=== PATIENT | male | born 1995 | race Caucasian/White ===

== ENCOUNTER 2020-09-19 11:35 | Outpatient (REF) | payer OTHER, SELFPAY ==
[2020-09-19 12:54] LABS: Hematocrit 49.9 % (42-52); Hemoglobin 17.2 g/dl (14.0-18.0); Mean Corpuscular HGB Conc 34.5 g/dl (31.0-36.0); Mean Corpuscular Hemoglobin 29.2 pg (27.0-33.0); Mean Corpuscular Volume 84.7 fL (80-98); Mean Platelet Volume 10.1 fL (9.4-12.4); Platelet Count 254 X10*3/uL (160-400); Red Blood Count 5.89 X10*6/uL (4.60-5.80); Red Cell Distribution Width 12.6 % (11.0-16.0); White Blood Count 6.4 X10*3/uL (4.8-10.8)
[2020-09-19 13:06] LABS: Estimated Average Glucose 94 mg/dL; Hemoglobin A1c % 4.9 %
[2020-09-19 13:19] LABS: Alanine Aminotransferase 31 U/L (0-40); Albumin Level 4.8 g/dL (3.5-5.0); Alkaline Phosphatase 63 U/L (39-117); Anion Gap 12 (12-20); Aspartate Amino Transferase 21 U/L (5-37); Bilirubin Total 0.6 mg/dL (0.0-1.0); Blood Urea Nitrogen 21 mg/dL (9-16); Calcium 9.3 mg/dL (8.4-10.2); Carbon Dioxide 25 mmol/L (22-29); Chloride 107 mmol/L (96-108); Cholesterol 213 mg/dL; Estimated Glomerular Filt Rate > 60; Glucose Fasting 83 mg/dL (60-99); HDL Cholesterol 39 mg/dL; LDL Cholesterol Calculated 156 mg/dl; Potassium 4.2 mmol/L (3.3-5.1); Sodium 140 mmol/L (135-145); Total Protein 8.1 g/dL (6.5-8.0); Triglycerides 91 mg/dL
[2020-09-19 13:49] LABS: TSH reflex Free T4 1.19 uIU/mL (0.32-4.0)
== END 2020-09-19 11:36 | disposition home or self-care (01) ==
LOC: HO.LAB 11:35
PROVIDERS: PCP Physician Assistant; Visit Provider Physician Assistant
DX: I10 Essential (primary) hypertension (principal); E78.9 Disorder of lipoprotein metabolism, unspecified; E66.09 Other obesity due to excess calories; Z68.36 Body mass index [BMI] 36.0-36.9, adult; Z13.1 Encounter for screening for diabetes mellitus
CPT/HCPCS: 36415; 80053; 80061; 83036; 84443; 85027

== ENCOUNTER 2021-06-26 08:19 | Outpatient (REF) | payer OTHER, SELFPAY ==
[2021-06-26 08:58] LABS: Cholesterol 164 mg/dL; HDL Cholesterol 30 mg/dL; LDL Cholesterol Calculated 115 mg/dl; Triglycerides 97 mg/dL
== END 2021-06-26 08:20 | disposition home or self-care (01) ==
LOC: HO.LAB 08:19
PROVIDERS: PCP Physician Assistant; Visit Provider Physician Assistant
DX: E78.9 Disorder of lipoprotein metabolism, unspecified (principal)
CPT/HCPCS: 36415; 80061

== ENCOUNTER → 2021-08-08 09:05 | Outpatient (BNVA) | payer OTHER, SELFPAY | PROVIDERS: PCP Physician Assistant; Visit Provider Urology ==

== ENCOUNTER 2021-10-04 08:54 | Outpatient (REF) | payer OTHER, SELFPAY ==
[2021-10-04 10:08] LABS: Alanine Aminotransferase 34 U/L (0-40); Albumin Level 4.4 g/dL (3.5-5.0); Alkaline Phosphatase 48 U/L (39-117); Anion Gap 10 (12-20); Aspartate Amino Transferase 19 U/L (5-37); Bilirubin Total 0.7 mg/dL (0.0-1.0); Blood Urea Nitrogen 20 mg/dL (9-16); Calcium 9.5 mg/dL (8.4-10.2); Carbon Dioxide 27 mmol/L (22-29); Chloride 105 mmol/L (96-108); Cholesterol 195 mg/dL; Estimated Glomerular Filt Rate > 60; Glucose Fasting 78 mg/dL (60-99); HDL Cholesterol 36 mg/dL; LDL Cholesterol Calculated 136 mg/dl; Potassium 4.2 mmol/L (3.3-5.1); Sodium 138 mmol/L (135-145); Total Protein 7.4 g/dL (6.5-8.0); Triglycerides 118 mg/dL
[2021-10-04 10:09] LABS: Estimated Average Glucose 91 mg/dL; Hemoglobin A1c % 4.8 %
[2021-10-04 10:30] LABS: TSH reflex Free T4 1.35 uIU/mL (0.32-4.0)
== END 2021-10-04 08:55 | disposition home or self-care (01) ==
LOC: HO.LAB 08:54
PROVIDERS: PCP Physician Assistant; Visit Provider Physician Assistant
DX: Z13.1 Encounter for screening for diabetes mellitus (principal); E78.9 Disorder of lipoprotein metabolism, unspecified
CPT/HCPCS: 36415; 80053; 80061; 83036; 84443

== ENCOUNTER → 2021-12-18 10:48 | Outpatient (BNVA) | payer OTHER, SELFPAY | PROVIDERS: PCP Physician Assistant; Visit Provider Urology | DX: Z30.2 Encounter for sterilization (principal); F41.8 Other specified anxiety disorders | CPT/HCPCS: 55250 ==

== ENCOUNTER 2022-06-03 14:41 | Outpatient (REF) | payer OTHER, SELFPAY ==
[2022-06-04 08:29] LABS: Syphilis Screen Nonreactive (Nonreactive)
[2022-06-04 09:04] LABS: HBS Num1 0.79 mIU/mL (0-7.99); HBc Num1 0.12 S/CO (0.00-0.79); HBsAGNum1 0.37 S/CO (0.00-0.99); HIV AB/AG Nonreactive (Nonreactive); HIV Num 1 0.09 S/CO (0.00-0.99); Hepatitis B Core Antibody Nonreactive (Nonreactive); Hepatitis B Surface Antigen Negative (Negative); ~HepC Num1 0.12 S/CO (0.00-0.79); ~Hepatitis B Surface Antibody NONREACTIVE (Nonreactive); ~Hepatitis C Antibody Nonreactive (Nonreactive)
[2022-06-04 10:31] LABS: CT PCR NOT DETECTED (Not Detect.); NG PCR NOT DETECTED (Not Detect.)
== END 2022-06-03 14:42 | disposition home or self-care (01) ==
LOC: HO.LAB 14:41
PROVIDERS: PCP Physician Assistant; Visit Provider Physician Assistant
DX: Z11.3 Encounter for screening for infections with a predominantly sexual mode of transmission (principal); Z11.4 Encounter for screening for human immunodeficiency virus [HIV]; Z20.2 Contact with and (suspected) exposure to infections with a predominantly sexual mode of transmission
CPT/HCPCS: 86704; 86706; 86780; 86803; 87340; 87389; 87491; 87591

== ENCOUNTER 2022-10-03 14:40 | Outpatient (REF) | payer OTHER, SELFPAY ==
[2022-10-03 15:29] LABS: Hematocrit 48.2 % (42.0-52.0); Hemoglobin 16.8 g/dl (14.0-18.0); Mean Corpuscular HGB Conc 34.9 g/dl (31.0-36.0); Mean Corpuscular Hemoglobin 29.7 pg (27.0-33.0); Mean Corpuscular Volume 85.2 fL (80.0-98.0); Mean Platelet Volume 9.7 fL (9.4-12.4); Platelet Count 220 X10*3/uL (160-400); Red Blood Count 5.66 X10*6/uL (4.60-5.80); Red Cell Distribution Width 12.4 % (11.0-16.0); White Blood Count 7.6 X10*3/uL (4.8-10.8)
[2022-10-03 15:59] LABS: Alanine Aminotransferase 30 U/L (0-40); Albumin Level 4.6 g/dL (3.5-5.0); Alkaline Phosphatase 56 U/L (39-117); Anion Gap 11 (12-20); Aspartate Amino Transferase 21 U/L (5-37); Bilirubin Total 0.9 mg/dL (0.0-1.0); Blood Urea Nitrogen 14 mg/dL (9-16); Carbon Dioxide 31 mmol/L (22-29); Chloride 102 mmol/L (96-108); Cholesterol 214 mg/dL; Estimated Glomerular Filt Rate > 60; Glucose Fasting 72 mg/dL (60-99); HDL Cholesterol 47 mg/dL; LDL Cholesterol Calculated 152 mg/dl; Potassium 4.2 mmol/L (3.3-5.1); Sodium 140 mmol/L (135-145); Total Protein 7.6 g/dL (6.5-8.0); Triglycerides 75 mg/dL
== END 2022-10-03 14:41 | disposition home or self-care (01) ==
LOC: HO.LAB 14:40
PROVIDERS: PCP Physician Assistant; Visit Provider Physician Assistant
DX: Z13.1 Encounter for screening for diabetes mellitus (principal); E78.9 Disorder of lipoprotein metabolism, unspecified
CPT/HCPCS: 36415; 80053; 80061; 85027

== ENCOUNTER 2022-10-16 15:26 | Outpatient (REF) | payer OTHER, SELFPAY ==
[2022-10-16 18:36] LABS: TSH reflex Free T4 1.21 uIU/mL (0.32-4.0)
[2022-10-20 13:24] LABS: Thyroid Peroxidase Antibodies 1 IU/mL (<9)
== END 2022-10-16 15:27 | disposition home or self-care (01) ==
LOC: HO.LAB 15:26
PROVIDERS: PCP Physician Assistant; Visit Provider Physician Assistant
DX: E66.09 Other obesity due to excess calories (principal); Z68.32 Body mass index [BMI] 32.0-32.9, adult
CPT/HCPCS: 36415; 84443; 86376

== ENCOUNTER 2022-10-25 23:52 | Emergency (ER) | payer OTHER, SELFPAY ==
--- NOTE | ~2022-10-25 | XR_ITS ---
EXAMINATION: XR CHEST CLINICAL INFORMATION: Dyspnea COMPARISON: None available. TECHNIQUE: 2 views of the chest were obtained. FINDINGS: The lungs are clear with no focal consolidation. No evidence of pneumothorax, pulmonary edema, or pleural effusions. The cardiomediastinal silhouette is unremarkable. No acute osseous findings. XR/XR chest 2V IMPRESSION: No acute cardiopulmonary findings.
[2022-10-25 23:55] VITALS: BP 128/73; PULSE 127; RESP 24; TEMP 37.7; O2SAT 94; BMI 29.5
[2022-10-26 00:30] VITALS: BP 141/77; PULSE 118; RESP 18; O2SAT 94
[2022-10-26] MEDS: Albuterol Sulfate (0.083%) 2.5 MG/3 ML VIAL.NEB 5 MG INHALE (00:41)
[2022-10-26 00:42] VITALS: PULSE 78; RESP 16; O2SAT 97
[2022-10-26 00:58] VITALS: BP 118/66; PULSE 140; RESP 24; TEMP 38.4; O2SAT 98
--- NOTE | 2022-10-26 01:03 | ED_ITS ---
HPI - SOB/Dyspnea General Chief Complaint: Dyspnea Stated Complaint: SoB Time Seen by Provider: 10/26/22 00:27 Source: patient Mode of arrival: ambulatory Limitations: no limitations History of Present Illness HPI Narrative: 26-year-old male with history of asthma presents with shortness of breath. Symptoms started 1 week ago. Associated with low-grade temperature. He also has a cough of green mucus production. He occasionally has a chest tightness with associated with his cough. He denies any lower extremity edema, recent travel or surgeries. Denies any history of PE or DVT. Home remedies have not worked. Patient describes symptoms as moderate to severe. Symptoms are worse with exertion. Denies any orthopnea, PND. Patient has tried allergy medications without relief. Related Data Previous Rx's Medication Instructions Recorded albuterol sulfate 90 mcg/actuation 1 inh inhalation QID PRN shortness 09/05/22 aerosol inhaler of breath or wheezing #8.5 grams fexofenadine-pseudoephedrine ER 1 tab PO QAM 20 days #20 tabs 10/23/22 180 mg-240 mg tablet,ext.release 24 hr (Pearl-D 24 Hour) azithromycin 250 mg tablet 250 mg PO DAILY 4 days #4 tabs 10/26/22 fluticasone 250 mcg-salmeterol 50 1 inh inhalation Q12H #60 ea 10/26/22 mcg/dose blistr powdr for inhalation (Advair Diskus) Allergies Allergy/AdvReac Type Severity Reaction Status Date / Time No Known Allergies Allergy Verified 09/30/22 13:31 COUNTS INCLUDE 234 BEDS AT THE [facility] Past Medical History Surgical History No pertinent past surgical history Family History Family History Father No problems noted. Mother No problems noted. Social History Social History (Updated 09/30/22 @ 13:35 by Hilario Lopez PA-C) Housing: House Alcohol intake: current Alcohol intake frequency: holidays/special occasions only Alcohol type: hard liquor Patient Tobacco Use Status: Never used Tobacco Smoked in Last 30 Days: No e-Cigarette/Vaping Use: Never Used Second Hand Smoke Exposure: No Use of substances other than those prescribed or required for medical reasons: No Substance Use Type: Marijuana Advance Directives: No Advance Directives Information Provided: Yes service: No Current occupational status: employed Current occupation: [employer] Current occupational exposures/hazards: No Cognitive needs: No Hearing needs: No Vision needs: No Physical Exam Vital Signs: Vital Signs: Last Vital Signs Temp 101.1 F H 10/26/22 00:58 Pulse 94 10/26/22 01:17 Resp 19 10/26/22 01:17 BP 118/66 10/26/22 00:58 Pulse Ox 98 10/26/22 00:58 O2 Del Method Room Air 10/26/22 00:58 BMI result Body Mass Index 29.5 GEN: Well developed, no acute distress, alert, oriented HEENT: Normocephalic, atraumatic, normal external ears, nose appears normal, no oropharyngeal edema or exudates Eyes: Normal to appearance Neck: Supple, no lymphadenopathy Respiratory: Prolonged expiration, expiratory wheezes, slight accessory muscle use Cardiovascular: Regular rate and rhythm, no murmurs rubs or gallops, tachycardic Abdomen: Soft, nontender, nondistended, no guarding, no rebound Back: No CVA tenderness Extremities: No clubbing cyanosis or edema Neurologic: No focal neurologic deficits, cranial nerves 2-12 intact, strength is 5/5 bilaterally Skin: No rash Course Course Course Narrative: 26-year-old male presents with 1 week of cough, shortness of breath, wheezing, green mucus production and low-grade temperature on exam he has prolonged expiration and expiratory wheezes. This is consistent with an asthma exacerbation. Given the low-grade temperature, green mucus production in week of symptoms, suspect bacterial bronchitis at this time. Will check for COVID and influenza. Will obtain a chest x-ray. Patient will get oral steroids, nebulizer treatment and re-evaluation Reevaluation(s) Reevaluation #1: Patient is feeling much better. Pulmonary auscultation revealed no active wheezing. He is tachycardic from the albuterol. Will discharge on oral antibiotics, add beer. He has albuterol at home. He received a large dose of dexamethasone. There does not appear to be reason to continue dexamethasone at this time. Time: 02:04 Medications Administered Discontinued Medications Generic Name Dose Route Start Last Admin Trade Name Freq PRN Reason Stop Dose Admin Acetaminophen 975 mg 10/26/22 01:10 10/26/22 01:24 Acetaminophen 325 Mg Tablet PO 10/26/22 01:11 Not Given ONCE ONE Albuterol Sulfate 5 mg 10/26/22 00:25 10/26/22 00:41 Albuterol Sulfate (0.083%) 2.5 Mg/3 Ml Vial.Neb INHALE 10/26/22 00:26 5 mg ONCE ONE Administration Albuterol Sulfate 2.5 mg 10/26/22 01:10 10/26/22 01:14 Albuterol Sulfate (0.083%) 2.5 Mg/3 Ml Vial.Neb INHALE 10/26/22 01:11 2.5 mg ONCE ONE Administration Azithromycin 500 mg 10/26/22 00:48 10/26/22 01:21 Azithromycin 500 Mg Tablet PO 10/26/22 00:49 500 mg ONCE ONE Administration Dexamethasone 10 mg 10/26/22 00:48 10/26/22 01:21 Dexamethasone 2 Mg Tablet PO 10/26/22 00:49 10 mg ONCE ONE Administration Medical Decision Making Medical Decision Making MDM Narrative: 26-year-old male with history of asthma presents with shortness of breath, chest pain. Examination revealed well-appearing male in no acute distress, slight accessory muscle use for breathing. Has prolonged expiration and expiratory wheezes. He has no lower extremity edema. He has no risk factors for PE or DVT. His PERC score is 0. I suspect bronchitis or viral illness. Will obtain a chest x-ray to rule out pneumonia. Will provide patient with steroids and breathing treatments and re-evaluate the patient. There is no indication for laboratory analysis at this time. Will check for viral serology. Differential Diagnosis Differential Diagnoses: The differential diagnosis associated with the presentation includes (Pneumonia, bronchitis, asthma exacerbation, CHF, pleural effusion, dyspnea) Acute dyspnea Admission/Observation Consideration of admission/observation: Escalation of care including admission/observation considered Lab Data [facility] Lab Attestation statement: I reviewed the patient's lab results. Labs: Lab Results 10/26/22 10/26/22 Range/Units 01:13 01:13 COVID-19 (MISSY) Negative (Negative) COVID-19 Clin Com See Note Influenza Type A (TEETEE) Negative (Negative) Influenza Type B (TEETEE) Negative (Negative) Influenza A & B Note See Note Independent Interpretation I performed an independent interpretation of an: Plain X-Ray (CXR: NAD) Independent Historian Clinical information obtained from an independent historian. History obtained from or confirmed by: Other (Significant other) Tests considered The following testing was considered but not selected: CT chest Prescription Management I considered prescription management with: Pain Medication and Antibiotic Discharge Plan Discharge Clinical Impression: Acute dyspnea, Asthma with exacerbation Patient Disposition: Home, Self-Care Instructions: Asthma (ED), How to Use a Metered-Dose Inhaler (ED), How to Use a Dry-Powder Inhaler (ED), Dyspnea (ED), How to Use a Breath-Activated Inhaler (ED) Prescriptions: New azithromycin 250 mg tablet 250 mg PO DAILY 4 Days Qty: 4 0RF Rx Instructions: start on day 2 of therapy fluticasone propion-salmeterol [Advair Diskus] 250-50 mcg/dose blister with device 1 inh inhalation Q12H Qty: 60 0RF No Action albuterol sulfate 90 mcg/actuation HFA aerosol inhaler 1 inh inhalation QID PRN (Reason: shortness of breath or wheezing) Qty: 8.5 0RF fexofenadine-pseudoephedrine [Pearl-D 24 Hour] 180-240 mg tablet extended release 24 hr 1 tab PO QAM 20 Days Qty: 20 0RF lidocaine (PF) 10 mg/mL (1 %) solution 2 ml Infiltration ONCE Qty: 2 0RF Referrals: Physician,Unknown J [Primary Care Provider] - 3 days
[2022-10-26] MEDS: Albuterol Sulfate (0.083%) 2.5 MG/3 ML VIAL.NEB INHALE (01:14)
[2022-10-26 01:17] VITALS: PULSE 94; RESP 19; O2SAT 94
--- NOTE | 2022-10-26 01:19 | MHC.EDTECH ---
CHARGE NURSE APRIL IS AWARE OF [facility] STATUS BOARD NOT WORKING AT THIS TIME ,TO SEND LABS ,PT LABEL WAS USE TO SENT FLU AND COVID SWAB
[2022-10-26] MEDS: Azithromycin 500 MG TABLET PO (01:21)
[2022-10-26] MEDS: dexAMETHasone 2 MG TABLET 10 MG PO (01:21)
[2022-10-26 01:31] LABS: COVID-19 Test Negative (Negative); IDNOW Serial# BCCEAD1C
[2022-10-26 01:35] LABS: IDNOW Serial# 08D9AD1C; Influenza A Negative (Negative); Influenza B2 Negative (Negative)
[2022-10-26 02:00] VITALS: BP 114/59; PULSE 137; RESP 18; TEMP 37.6; O2SAT 95
== END 2022-10-26 02:26 | disposition home or self-care (01) ==
PROVIDERS: Emergency Provider Emergency Medicine
DX: J45.901 Unspecified asthma with (acute) exacerbation (principal); R06.02 Shortness of breath; Z20.822 Contact with and (suspected) exposure to COVID-19; Z20.828 Contact with and (suspected) exposure to other viral communicable diseases; Z79.899 Other long term (current) drug therapy
CPT/HCPCS: 71046; 87502; 87635; 94640; 99285; J8540

== ENCOUNTER 2023-01-28 14:58 | Outpatient (REF) | payer SELFPAY ==
[2023-01-28 17:07] LABS: Alanine Aminotransferase 23 U/L (0-40); Albumin Level 4.6 g/dL (3.5-5.0); Alkaline Phosphatase 52 U/L (39-117); Anion Gap 16 (12-20); Aspartate Amino Transferase 18 U/L (5-37); Bilirubin Total 0.7 mg/dL (0.0-1.0); Blood Urea Nitrogen 16 mg/dL (9-16); Calcium 9.6 mg/dL (8.4-10.2); Carbon Dioxide 23 mmol/L (22-29); Chloride 107 mmol/L (96-108); Cholesterol 181 mg/dL; Estimated Glomerular Filt Rate > 60; Glucose Fasting 79 mg/dL (60-99); HDL Cholesterol 40 mg/dL; LDL Cholesterol Calculated 126 mg/dl; Potassium 3.7 mmol/L (3.3-5.1); Sodium 142 mmol/L (135-145); Total Protein 7.8 g/dL (6.5-8.0); Triglycerides 77 mg/dL
[2023-01-29 07:43] LABS: Syphilis Screen Nonreactive (Nonreactive)
[2023-01-29 08:13] LABS: HIV AB/AG Nonreactive (Nonreactive); HIV Num 1 0.07 S/CO (0.00-0.99)
== END 2023-01-28 14:59 | disposition home or self-care (01) ==
LOC: HO.LAB 14:58
PROVIDERS: PCP Physician Assistant; Visit Provider Physician Assistant
DX: Z11.3 Encounter for screening for infections with a predominantly sexual mode of transmission (principal); Z13.1 Encounter for screening for diabetes mellitus; Z11.4 Encounter for screening for human immunodeficiency virus [HIV]; E78.9 Disorder of lipoprotein metabolism, unspecified; E78.00 Pure hypercholesterolemia, unspecified
CPT/HCPCS: 36415; 80053; 80061; 86780; 87389

== ENCOUNTER 2023-10-05 13:24 | Outpatient (AMB) | payer OTHER, SELFPAY ==
--- NOTE | 2023-10-05 13:31 | A.OFFPC_ITS ---
Vital Signs 10/05/23 13:32 Height 5 ft 9 in Weight 215 lb BMI 31.7 BP 114/80 Blood Pressure Location Lt brachial Position Sitting Respiration 17 Pulse 79 Pulse Source Pulse Oximeter Pulse Oximetry (%) 97 Oxygen Delivery Method Room Air Intake Visit Reasons: Annual Exam Intake Note: Patient is here today for a physical. Consulting Project Director Required: No Accompanied by: Self / Same As Patient Allergies No Known Allergies Allergy (Verified 10/05/23 13:36) Medication List - Last Reconciled 10/05/23 by Hilario Lopez PA-C albuterol sulfate 90 mcg/actuation 1 inh inhalation QID PRN fexofenadine-pseudoephedrine 180-240 mg ER (Pearl-D 24 Hour) 1 tab PO QAM 20 days fluticasone propion-salmeterol 250-50 mcg/dose (Wixela Inhub) 1 inh inhalation Q12H 30 days inhalational spacing device (AeroTrach Plus spacer) As directed Tobacco use date assessed: 10/05/23 Dental Screening Dental Screen Date: 10/05/23 Did you have a dental visit in the last 12 months?: Yes Did you have a dental problem in the last 6 months where you did not have access to dental care?: No Was dental information given to patient?: Patient has dentist HPI Annual Exam HPI Details Patient is a 27-year-old male here today for an annual physical. Patient has a past medical history significant for borderline high total cholesterol, asthma. .. Asthma: He reports his asthma has been well controlled with current maintenance inhaler and p.r.n. use of his albuterol inhaler. He denies any asthma exacerbations or nighttime awakenings with asthma symptoms. He has not further using Singulair and simply using [id number] allergy medication. .. Obesity: He does understand he has gained weight since last office visit, BMI above 30. He admits to dietary indiscretion .. Borderline high cholesterol: Most recent fasting lipid panel showing borderline high cholesterol. He has been working on lifestyle and dietary modifications to control his borderline high cholesterol. Will continue to follow lipid panel . Vaccines: Up-to-date with COVID vaccine, tetanus vaccine, UTD with flu, considering a pneumonia vaccine [facility] Medical History (Updated 10/05/23 @ 14:37 by Hilario Lopez PA-C) Anxiety about health Environmental allergies Surgical History No pertinent past surgical history Family History Father No problems noted. Mother No problems noted. Social History (Updated 10/05/23 @ 13:40 by Hilario Lopez PA-C) Housing: House Alcohol intake: current Alcohol intake frequency: holidays/special occasions only Alcohol type: hard liquor Patient Tobacco Use Status: Never used Tobacco e-Cigarette/Vaping Use: Never Used Second Hand Smoke Exposure: No Substance Use Type: Marijuana service: No Current occupational status: employed Current occupation: [employer] Current occupational exposures/hazards: No Cognitive needs: No Hearing needs: No Vision needs: No Questionnaire PHQ-9 Over the last 2 weeks, how often have you been bothered by any of the following problems? 1. Little interest or pleasure in doing things: not at all 2. Feeling down, depressed, or hopeless: not at all 3. Trouble falling or staying asleep, or sleeping too much: not at all 4. Feeling tired or having little energy: not at all 5. Poor appetite or overeating: not at all 6. Feeling bad about yourself - or that you are a failure or have let yourself or your family down: not at all 7. Trouble concentrating on things, such as reading the newspaper or watching television: not at all 8. Moving or speaking so slowly that other people could have noticed. Or the opposite - being so fidgety or restless that you have been moving around a lot more than usual: not at all 9. Thoughts that you would be better off or of hurting yourself in some way: not at all Total score: 0 Depression Screening Interpretation: Negative Depression Screening Done: Yes 86657 - PHQ-9 Billing: Yes Source: Developed by Drs. Jorge Rutledge, Miranda Holland, Bob Clark and colleagues, with an educational ajay from [employer]. Thrive Questionnaire Date Thrive assessed: 10/05/23 I am a: Patient What is your living situation today?: I have a steady place to live Within the past 12 months, did the food you bought not last and you didn't have the money to get more?: Never true Within the past 12 months, did you worry whether your food would run out before you got money to buy more?: Never true Do you have trouble paying for medicines?: No Do you have trouble getting transportation to medical appointments?: No Do you have trouble paying your heating and electricity bill?: No Do you have trouble taking care of your child, family member or friend?: No Do you have trouble with day-to-day activities such as bathing, preparing meals, shopping, managing finances, etc.?: No Are you currently unemployed and looking for a job?: No Are you interested in more education?: No Please select the resources that you would like help with: None Currently or been in a relationship where the following occur: no concerns reported THRIVE Score: 0 AUDIT C Alcohol Use Questionnaire (AUDIT-C) 1. How often do you have a drink containing alcohol?: Monthly or less 2. How many drinks containing alcohol do you have on a typical day when you are drinking?: 1 or 2 3. How often do you have six or more drinks on one occasion?: Never Total Score: 1 DIPESH-7 AMB Questionnaire DIPESH-7 Date DIPESH - 7 assessed: 10/05/23 Feeling nervous, anxious, or on edge: 0 = Not at all Not being able to stop or control worryin = Not at all Worrying too much about different things: 0 = Not at all Trouble relaxin = Not at all Being so restless that it is hard to sit still: 0 = Not at all Becoming easily annoyed or irritable: 0 = Not at all Feeling afraid as if something awful might happen: 0 = Not at all Total DIPESH-7 score (0-4 normal; 5-9 mild; 10-14 moderate; 15-21 severe): 0 Source: Developed by Drs. Jorge Rutledge, Miranda Holland, Bob Clark and colleagues, with an educational ajay from [employer]. DIPESH-7 Assessment Billing DIPESH-7 Assessment Tool: DIPESH-7 Assessment 40659 ACT Questionnaire In the past 4 weeks, how much of the time did your asthma keep you from getting as much done at work, school or at home?: None of the time During the past 4 weeks, how often have you had shortness of breath?: Not at all During the past 4 weeks, how often did your asthma symptoms wake you up at night or earlier than usual in the morning?: Not at all During the past 4 weeks, how often have you had to use your rescue inhaler or nebulizer medication?: Not at all How would you rate your asthma control during the past 4 weeks?: Completely controlled ACT Interpretation: Negative Score: 25 Review of Systems Const Denies body aches, Denies chills, Denies excessive sweating, Denies fatigue, Denies fever(s) and Denies headache(s) Eyes Denies blurry vision ENT Denies dysphagia, Denies vertigo, Denies dizziness, Denies headache(s), Denies hearing loss and Denies tinnitus Card Denies chest pain, Denies chest pain with activity, Denies syncope, Denies irregular heart rhythm and Denies dyspnea Resp Denies chest congestion, Denies cough, Denies hemoptysis, Denies dyspnea and Denies wheezing GI Denies abdominal pain, Denies melena, Denies hematochezia, Denies coffee ground emesis, Denies dysphagia, Denies diarrhea, Denies nausea and Denies vomiting Denies difficulty urinating, Denies dysuria, Denies urinary frequency, Denies urinary hesitancy and Denies urinary urgency Musc Denies arthralgias, Denies limited range of motion, Denies muscle cramps and Denies muscle weakness Skin/Breast Denies rash and Denies skin ulcer Neuro Denies Abnormal speech present, Denies confusion, Denies vertigo, Denies dizziness, Denies syncope, Denies headache(s), Denies memory loss and Denies seizure-like activity Psych Denies anxiety, Denies confusion, Denies depression, Denies memory loss, Denies panic attacks and Denies paranoia Endo Denies excessive sweating, Denies fatigue, Denies flushing, Denies polydipsia and Denies polyuria Aller/Immun Denies wheezing Physical exam (Primary Care) Vital Signs: Last Vital Signs Pulse 79 10/05/23 13:32 Resp 17 10/05/23 13:32 BP 114/80 10/05/23 13:32 Pulse Ox 97 10/05/23 13:32 Oxygen Delivery Method Room Air 10/05/23 13:32 BMI result Body Mass Index 31.7 Tobacco/Smoking Status: Tobacco use Status Tobacco use date assessed 10/05/23 10/05/23 13:37 Patient Tobacco Use Status Never used Tobacco 10/05/23 13:40 Tobacco use type 09/23/21 10:43 e-Cigarette/Vaping Use Never Used 10/05/23 13:40 PHQ-9: PHQ-9 Score PHQ-9: Total score 0 10/05/23 13:36 Depression Screening Interpretation: Negative Thrive Assessment: Date of Thrive Assessment Date Thrive assessed 10/05/23 10/05/23 13:36 Currently or been in a relationship where the following occur: no concerns reported Const General: cooperative, comfortable, no acute distress, alert and awake; No confusion Orientation/consciousness: oriented to person, oriented to place, patient oriented x3 and No confusion HENMT Head: Yes normocephalic Ears: external ears normal and TM's normal bilaterally Face and sinus: No sinus tenderness Mouth: Normal oral and palatal mucosa present and tongue normal Teeth and gingiva: dentition normal and gingiva normal Throat: Yes posterior oropharynx normal, Yes tonsils normal and Yes uvula midline Eyes Conjunctivae: conjunctivae normal Sclerae: sclerae normal Pupils: Equal, round and reactive pupils present EOM: EOMs intact bilaterally Direct Ophthalmoscopy: No no photophobia Neck Neck: Yes no lymphadenopathy, No tender and Yes no JVD Thyroid: Thyroid normal Carotids: no bruits Chest Chest palpation & inspection: no tenderness Resp Effort & Inspection: normal respiratory effort, no audible wheezes, not labored and no stridor Auscultation: no crackles, no rales, no rhonchi and no wheezes Cardio Jugular venous distension: no JVD Rate: regular rate, not bradycardic and not tachycardic Rhythm: regular rhythm Bruits: no carotid bruits Peripheral pulses: Peripheral pulses 2+ throughout GI Inspection: Yes normal to inspection, No abdominal wall ecchymosis and No visible herniation Palpation (GI): Soft to palpation, nontender, no guarding, not rigid and No hepatosplenomegaly present Auscultation: normoactive bowel sounds General: Yes no CVA tenderness Back/Spine/Pelvis Back: no CVA tenderness and No back tenderness Cervical Spine: cervical ROM normal Thoracic/Lumbar Spine: thoracic and lumbar spine normal to inspection, straight leg raise negative bilaterally, No thoraco-lumbar ROM limited and No lumbar spinal tenderness Skin Lesions: no lesions Rashes: no rashes Wounds: no wounds Neuro General: oriented to person, oriented to place, patient oriented x3, CN's II-XI intact bilaterally and No confusion Cranial nerves: Yes Equal, round and reactive pupils present and Yes Normal accommodation reflex present Cognition (Neuro): normal cognition Speech: No Abnormal speech present Gait exam (Neuro): Normal gait present Motor exam (neuro): 5/5 motor strength present throughout Extrem Right upper extremity: full ROM; no cyanosis Left upper extremity: full ROM; no cyanosis Right lower extremity: no edema Left lower extremity: no edema Psych Appearance: grossly normal Mental Status: mental status grossly normal Affect: normal affect Attitude: cooperative Thought process: Normal thought process present Immunizations pneumoc 20-finesse conj-dip cr(PF) 0.5 mL IM syringe Performing Provider: Hilario Lopez PA-C Performing Location: [facility] Administered by: ALBAN Wood on 10/05/23 13:55 Dose Route Admin Location Dispensed Lot Number Expiration Date NDC Statistical Programmer 0.5 mL IM Left Deltoid 0.5 mL [id number] 09/03/24 8548-4034-44 [employer] Homes VIS Given Date VIS Provided VIS Publication Date 10/05/23 Single Vaccine 21 Eligibility Eligibility Date Funding Source Not [facility] Eligible 10/05/23 Private Assessment and Plan Assessment & Plan (1) Annual physical exam: Code(s): Z00.00 - Encounter for general adult medical examination without abnormal findings (2) Borderline high cholesterol: Code(s): E78.9 - Disorder of lipoprotein metabolism, unspecified Plan: Patient's history of borderline high total cholesterol. Has been trying to work on lifestyle modifications on better eating habits and has lost weight. Will recheck cholesterol to ensure normal cholesterol readings. (3) Asthma: Code(s): J45.909 - Unspecified asthma, uncomplicated Qualifiers: Asthma severity: mild Asthma persistence: persistent Asthma complication type: uncomplicated Qualified Code(s): J45.30 - Mild persistent asthma, uncomplicated Plan: Patient reports his asthma has been well controlled with current in his inhaler and p.r.n. use of his albuterol inhaler. (4) Obese: Code(s): E66.9 - Obesity, unspecified Qualifiers: Body mass index: BMI 32.0-32.9 Obesity classification: adult class 1 (BMI 30 - 34.9) Obesity type: due to excess calories Serious obesity comorb idity presence: without serious comorbidity Qualified Code(s): E66.09 - Other obesity due to excess calories; Z68.32 - Body mass index [BMI] 32.0-32.9, adult Plan: Patient does understand his BMI is over 30 will work on being more physically active and adapting to better eating habits to reduce his weight Orders: Orders Complete Blood Count no Diff Today J45.30 - Mild persistent asthma, uncomplic ated Comprehensive [place]. Panel Fast Today Z13.1 - Encounter for screening for diabetes mellitus Lipid Panel Today E78.9 - Disorder of lipoprotein metabolism, unspecified Pneumococcal 20 Immunization Today J45.30 - Mild persistent asthma, uncomplicated, Z23 - Encounter for immunization Medications: Discontinued inhalational spacing device (AeroTrach Plus spacer) Discontinued Reason: Doctor's Order As directed 1 ea 0RF J45.909 - Unspecified asthma, uncomplicated Coding Level of Care Code Est Pt Prev Care [id number]([id number]) Diagnoses Annual physical exam Z00.00 Borderline high cholesterol E78.9 Mild persistent asthma without complication J45.30 Asthma severity: mild Asthma persistence: persistent Asthma complication type: uncomplicated Class 1 obesity due to excess calories without serious comorbidity with body mass index (BMI) of 32.0 to 32.9 in adult E66.09; Z68.32 Body mass index: BMI 32.0-32.9 Obesity classification: adult class 1 (BMI 30 - 34.9) Obesity type: due to excess calories Serious obesity comorbidity presence: without serious comorbidity Additional Codes DIPESH-7 Assessment Billing - DIPESH-7 Assessment Tool: DIPESH-7 Assessment [id number] ([id number])
[2023-10-05 13:32] VITALS: BP 114/80; PULSE 79; RESP 17; O2SAT 97; BMI 31.7
== END 2023-10-05 13:53 | disposition home or self-care (01) ==
PROVIDERS: Visit Provider Physician Assistant
DX: Z23 Encounter for immunization (principal); Z00.00 Encounter for general adult medical examination without abnormal findings; J45.30 Mild persistent asthma, uncomplicated; E66.09 Other obesity due to excess calories; Z68.32 Body mass index [BMI] 32.0-32.9, adult
CPT/HCPCS: 90471; 90677; 99395

== ENCOUNTER 2023-10-12 08:55 | Outpatient (REF) | payer OTHER, SELFPAY ==
[2023-10-12 09:35] LABS: Hematocrit 47.7 % (42.0-52.0); Hemoglobin 17.1 g/dl (14.0-18.0); Mean Corpuscular HGB Conc 35.8 g/dl (31.0-36.0); Mean Corpuscular Hemoglobin 30.7 pg (27.0-33.0); Mean Corpuscular Volume 85.6 fL (80.0-98.0); Mean Platelet Volume 9.6 fL (9.4-12.4); Platelet Count 210 X10*3/uL (160-400); Red Blood Count 5.57 X10*6/uL (4.60-5.80); Red Cell Distribution Width 12.2 % (11.0-16.0)
[2023-10-12 12:14] LABS: Alanine Aminotransferase 35 U/L (0-40); Albumin Level 4.6 g/dL (3.5-5.0); Alkaline Phosphatase 52 U/L (39-117); Anion Gap 12 (12-20); Aspartate Amino Transferase 25 U/L (5-37); Bilirubin Total 0.6 mg/dL (0.0-1.0); Blood Urea Nitrogen 15 mg/dL (9-16); Calcium 9.6 mg/dL (8.4-10.2); Carbon Dioxide 28 mmol/L (22-29); Chloride 106 mmol/L (96-108); Cholesterol 190 mg/dL (<200); Estimated Glomerular Filt Rate > 60; Glucose Fasting 85 mg/dL (60-99); HDL Cholesterol 42 mg/dL (>40); LDL Cholesterol Calculated 129 mg/dL (<100); Sodium 142 mmol/L (135-145); Total Protein 7.9 g/dL (6.5-8.0); Triglycerides 95 mg/dL (<150)
== END 2023-10-12 08:56 | disposition home or self-care (01) ==
LOC: HO.LAB 08:55
PROVIDERS: PCP Physician Assistant; Visit Provider Physician Assistant
DX: Z13.1 Encounter for screening for diabetes mellitus (principal); E78.9 Disorder of lipoprotein metabolism, unspecified; J45.30 Mild persistent asthma, uncomplicated
CPT/HCPCS: 36415; 80053; 80061; 85027

== ENCOUNTER 2024-03-31 13:11 | Outpatient (AMB) | payer OTHER, SELFPAY ==
--- NOTE | 2024-03-31 13:13 | MHC.PC.OV ---
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 Accompanied by: children Allergies No Known Allergies Allergy (Verified 03/31/24 13:34) Medication List - Last Reconciled 03/31/24 by Hilario Lopez PA-C albuterol sulfate 90 mcg/actuation 1 inh inhalation QID PRN fexofenadine-pseudoephedrine 180-240 mg ER (Pearl-D 24 Hour) 1 tab PO QAM 20 days fluticasone propion-salmeterol 250-50 mcg/dose (Wixela Inhub) 1 inh inhalation Q12H 30 days prednisone 10 mg PO DIRECTED 9 days triamcinolone acetonide 0.1% 1 appl topical BID 30 days Tobacco use date assessed: 10/05/23 Dental Screening Dental Screen Date: 10/05/23 HPI ADHD Evaluation HPI Details Patient is a 28-year-old male here today for follow-up visit. Just in does report having a diagnosis of ADHD while he has a child. He was on stimulant form of ADHD medication though reports his some side effects. He is interested in being re-evaluated in starting stimulant ADHD medication again. In discussion he does report having some attention especially doing home tasks though at his job he is doing quite well as he does not need to think has much work. We did discuss perhaps starting a non stimulant ADHD medications as a Strattera , Wellbutrin or guanfacine though he declines and is interested in starting a stimulant med Will refer to Psychiatry for evaluation and diagnosis of ADHD or ADD [facility] Medical History Anxiety about health Environmental allergies Surgical History No pertinent past surgical history Family History Father No problems noted. Mother No problems noted. Social History Housing: House Alcohol intake: current Alcohol intake frequency: holidays/special occasions only Alcohol type: hard liquor Patient Tobacco Use Status: Never used Tobacco e-Cigarette/Vaping Use: Never Used Second Hand Smoke Exposure: No Substance Use Type: Marijuana service: No Current occupational status: employed Current occupation: [employer] Current occupational exposures/hazards: No Cognitive needs: No Hearing needs: No Vision needs: No Questionnaire Thrive Questionnaire Date Thrive assessed: 10/05/23 Are you currently unemployed and looking for a job?: No DIPESH-7 AMB Questionnaire DIPESH-7 Date DIPESH - 7 assessed: 10/05/23 Source: Developed by Drs. Jorge Rutledge, Miranda Holland, Bob Clark and colleagues, with an educational ajay from [employer]. Review of Systems Const Denies headache(s) Eyes Denies loss of vision ENT Denies vertigo, Denies dizziness, Denies headache(s) and Denies sore throat Card Denies chest pain, Denies leg edema and Denies lightheadedness Resp Denies cough, Denies hemoptysis and Denies wheezing GI Denies abdominal pain, Denies melena, Denies constipation, Denies diarrhea and Denies vomiting Denies dysuria, Denies urinary frequency and Denies urinary urgency Musc Denies arthralgias, Denies joint swelling, Denies numbness and Denies tingling Neuro Denies Abnormal speech present, Denies behavioral changes, Denies vertigo, Denies dizziness, Denies headache(s), Denies loss of vision, Denies memory loss, Denies numbness and Denies tingling Psych Denies anxiety, Denies behavioral changes, Denies depression, Denies memory loss and Denies panic attacks Brian/Lymph Denies easy bleeding and Denies easy bruising Aller/Immun Denies wheezing Physical exam (Primary Care) Vital Signs: Last Vital Signs Pulse 87 03/31/24 13:26 BP 124/84 03/31/24 13:26 Pulse Ox 98 03/31/24 13:26 Oxygen Delivery Method Room Air 03/31/24 13:26 BMI result Body Mass Index 32.8 Tobacco/Smoking Status: Tobacco use Status Tobacco use date assessed 10/05/23 03/31/24 13:13 Patient Tobacco Use Status Never used Tobacco 03/31/24 13:13 Tobacco use type 03/29/24 11:45 e-Cigarette/Vaping Use Never Used 03/31/24 13:13 Thrive Assessment: Date of Thrive Assessment Date Thrive assessed 10/05/23 03/31/24 13:13 Const General: healthy appearing, no acute distress, alert and awake Nutritional Appearance: well nourished Orientation/consciousness: oriented to person, oriented to place and oriented to time HENMT Ears: TM's normal bilaterally General nose exam: Normal nasal mucous membranes and turbinates present Eyes Conjunctivae: conjunctivae normal Sclerae: sclerae normal Pupils: Equal, round and reactive pupils present Neck Neck: Yes no lymphadenopathy and Yes no JVD Thyroid: Thyroid normal Carotids: no bruits Resp Effort & Inspection: normal respiratory effort and not tachypneic Auscultation: no crackles, no rales, no rhonchi and no wheezes Cardio Rate: regular rate Rhythm: regular rhythm Heart sounds: no murmurs and normal S1 and S2 GI Palpation (GI): Soft to palpation, nontender, no hepatomegaly and no splenomegaly Auscultation: normal bowel sounds Skin General skin exam: no rashes or lesions noted and dry skin Neuro General: oriented to person, oriented to place and oriented to time Cranial nerves: Yes Equal, round and reactive pupils present Speech: No Abnormal speech present Gait exam (Neuro): Normal gait present Motor exam (neuro): no tremor noted Extrem Right upper extremity: full ROM Left upper extremity: full ROM Right lower extremity: full ROM; no edema Left lower extremity: full ROM; no edema Psych Mental Status: mental status grossly normal Speech and movement: Normal speech and movement present Affect: normal affect Attitude: cooperative Thought process: Normal thought process present Assessment and Plan Assessment & Plan (1) ADD (attention deficit disorder): Code(s): F98.8 - Other specified behavioral and emotional disorders with onset usually occurring in childhood and adolescence Qualifiers: Attention deficit type: attention or concentration deficit Qualified Code(s): R41.840 - Attention and concentration deficit Plan: As per HPI patient interested in getting evaluation for ADD or ADHD. He reports having some inattentiveness at home especially doing home tasks. At work he does not need to think does he is doing well at work. He reports having diagnosis of ADD as a child and was on stimulant ADHD meds which he is interested in reestablishing with. We did discuss non stimulant medications for ADHD as above. Will refer to Psychiatry for evaluation and recommendations Orders: Orders Complete Blood Count no Diff Today Z13.1 - Encounter for screening for diabetes mellitus Lipid Panel Today E78.9 - Disorder of lipoprotein metabolism, unspecified Comprehensive [place]. Panel Fast Today Z13.1 - Encounter for screening for diabetes mellitus Referrals Psychiatry Outpatient Consultation Service R41.840 - Attention and concentration deficit Medications: Refilled fluticasone propion-salmeterol 250-50 mcg/dose (Wixela Inhub) 1 inh inhalation Q12H 30 days 60 ea 3RF J45.909 - Unspecified asthma, uncomplicated Discontinued prednisone Take 3 tablets x3 days, 2 tablets x3 days, 1 tablet x3 days Discontinued Reason: Doctor's Order 10 mg PO DIRECTED 9 days 18 tabs 0RF R21 - Rash and other nonspecific skin eruption Coding Level of Care Code Est Pt Level 3 (24855) Diagnoses Attention or concentration deficit R41.840 Attention deficit type: attention or concentration deficit
[2024-03-31 13:26] VITALS: BP 124/84; PULSE 87; O2SAT 98; BMI 32.8
== END 2024-03-31 13:45 | disposition home or self-care (01) ==
PROVIDERS: PCP Physician Assistant; Visit Provider Physician Assistant
DX: R41.840 Attention and concentration deficit (principal)

== ENCOUNTER → 2024-03-31 13:11 | Outpatient (BNVA) | payer OTHER, SELFPAY | PROVIDERS: PCP Physician Assistant; Visit Provider Physician Assistant | DX: F98.8 Other specified behavioral and emotional disorders with onset usually occurring in childhood and adolescence (principal); R41.840 Attention and concentration deficit ==

== ENCOUNTER 2024-05-03 09:38 | Outpatient (AMB) | payer OTHER, SELFPAY ==
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
== END 2024-05-03 11:12 | disposition home or self-care (01) ==
LOC: HO.HOP 09:38
PROVIDERS: PCP Physician Assistant; Visit Provider Clinical Nurse Specialist Psychiatric/Mental Health
DX: F90.0 Attention-deficit hyperactivity disorder, predominantly inattentive type (principal)
CPT/HCPCS: 90792

== ENCOUNTER → 2024-05-03 09:38 | Outpatient (BNVA) | payer OTHER, SELFPAY | PROVIDERS: PCP Physician Assistant; Visit Provider Clinical Nurse Specialist Psychiatric/Mental Health | DX: F90.0 Attention-deficit hyperactivity disorder, predominantly inattentive type (principal) | CPT/HCPCS: 90792 ==

== ENCOUNTER 2024-06-16 10:44 | Outpatient (AMB) | payer OTHER, SELFPAY ==
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
== END 2024-06-16 11:25 | disposition home or self-care (01) ==
LOC: HO.HOP 10:44
PROVIDERS: PCP Physician Assistant; Visit Provider Clinical Nurse Specialist Psychiatric/Mental Health
DX: F90.0 Attention-deficit hyperactivity disorder, predominantly inattentive type (principal); F41.9 Anxiety disorder, unspecified
CPT/HCPCS: 99215

== ENCOUNTER → 2024-06-16 10:44 | Outpatient (BNVA) | payer OTHER, SELFPAY | PROVIDERS: PCP Physician Assistant; Visit Provider Clinical Nurse Specialist Psychiatric/Mental Health ==

== ENCOUNTER 2024-08-09 14:28 | Outpatient (AMB) | payer OTHER, SELFPAY ==
[2024-08-09 14:29] VITALS: BP 122/86; PULSE 115; TEMP 38.1; O2SAT 98; BMI 32.7
--- NOTE | 2024-08-09 14:29 | A.OFFPC_ITS ---
Vital Signs 08/09/24 14:29 Height 5 ft 9 in Weight 221 lb 6 oz BMI 32.7 BP 122/86 Blood Pressure Location Lt brachial Position Sitting Pulse 115 H Pulse Source Pulse Oximeter Temp 100.5 F H Temp Source Oral Pulse Oximetry (%) 98 Oxygen Delivery Method Room Air Intake Visit Reasons: Sick Visit Slurry Blender Required: No Accompanied by: Self / Same As Patient Allergies No Known Allergies Allergy (Verified 08/09/24 15:04) Medication List - Last Reconciled 08/09/24 by Wilfredo Castañeda MD albuterol sulfate 90 mcg/actuation 1 inh inhalation QID PRN fexofenadine-pseudoephedrine 180-240 mg ER (Pearl-D 24 Hour) 1 tab PO QAM 20 days fluticasone propion-salmeterol 250-50 mcg/dose (Wixela Inhub) 1 inh inhalation Q12H 30 days methylphenidate HCl (Ritalin) 10 mg PO TID PRN triamcinolone acetonide 0.1% 1 appl topical BID 30 days Tobacco use date assessed: 08/09/24 Dental Screening Dental Screen Date: 08/09/24 Did you have a dental visit in the last 12 months?: Yes Did you have a dental problem in the last 6 months where you did not have access to dental care?: No Was dental information given to patient?: Patient has dentist HPI Sick Visit HPI Details fever cough congestion 2 to 3 days PFSH Medical History Anxiety about health Environmental allergies Surgical History No pertinent past surgical history Family History Father No problems noted. Mother No problems noted. Social History Housing: House Alcohol intake: current Alcohol intake frequency: holidays/special occasions only Alcohol type: hard liquor Patient Tobacco Use Status: Never used Tobacco e-Cigarette/Vaping Use: Never Used Second Hand Smoke Exposure: No Substance Use Type: Marijuana service: No Current occupational status: employed Current occupation: [employer] Current occupational exposures/hazards: No Cognitive needs: No Hearing needs: No Vision needs: No Questionnaire PHQ-9 Over the last 2 weeks, how often have you been bothered by any of the following problems? 1. Little interest or pleasure in doing things: not at all 2. Feeling down, depressed, or hopeless: not at all 3. Trouble falling or staying asleep, or sleeping too much: not at all 4. Feeling tired or having little energy: not at all 5. Poor appetite or overeating: not at all 6. Feeling bad about yourself - or that you are a failure or have let yourself or your family down: not at all 7. Trouble concentrating on things, such as reading the newspaper or watching television: not at all 8. Moving or speaking so slowly that other people could have noticed. Or the opposite - being so fidgety or restless that you have been moving around a lot more than usual: not at all 9. Thoughts that you would be better off or of hurting yourself in some way: not at all Total score: 0 Depression Screening Interpretation: Negative Depression Screening Done: Yes 34258 - PHQ-9 Billing: Yes Source: Developed by Drs. Jorge Rutledge, Miranda Holland, Bob Clark and colleagues, with an educational ajay from [employer]. Thrive Questionnaire Date Thrive assessed: 08/09/24 I am a: Patient What is your living situation today?: I have a steady place to live Within the past 12 months, did the food you bought not last and you didn't have the money to get more?: Never true Within the past 12 months, did you worry whether your food would run out before you got money to buy more?: Never true Do you have trouble paying for medicines?: No Do you have trouble getting transportation to medical appointments?: No Do you have trouble paying your heating and electricity bill?: No Do you have trouble taking care of your child, family member or friend?: No Do you have trouble with day-to-day activities such as bathing, preparing meals, shopping, managing finances, etc.?: No Are you currently unemployed and looking for a job?: No Are you interested in more education?: No Please select the resources that you would like help with: None Currently or been in a relationship where the following occur: No concerns reported THRIVE Score: 0 AUDIT C Alcohol Use Questionnaire (AUDIT-C) 1. How often do you have a drink containing alcohol?: Monthly or less 2. How many drinks containing alcohol do you have on a typical day when you are drinking?: 1 or 2 3. How often do you have six or more drinks on one occasion?: Never Total Score: 1 DIPESH-7 AMB Questionnaire DIPESH-7 Date DIPESH - 7 assessed: 08/09/24 Feeling nervous, anxious, or on edge: 0 = Not at all Not being able to stop or control worryin = Not at all Worrying too much about different things: 0 = Not at all Trouble relaxin = Not at all Being so restless that it is hard to sit still: 0 = Not at all Becoming easily annoyed or irritable: 0 = Not at all Feeling afraid as if something awful might happen: 0 = Not at all Total DIPESH-7 score (0-4 normal; 5-9 mild; 10-14 moderate; 15-21 severe): 0 Source: Developed by Drs. Jorge Rutledge, Miranda Holland, Bob Clark and colleagues, with an educational ajay from [employer]. Physical exam (Primary Care) Vital Signs: Last Vital Signs Temp 100.5 F H 08/09/24 14:29 Pulse 115 H 08/09/24 14:29 BP 122/86 08/09/24 14:29 Pulse Ox 98 08/09/24 14:29 Oxygen Delivery Method Room Air 08/09/24 14:29 BMI result Body Mass Index 32.7 Tobacco/Smoking Status: Tobacco use Status Tobacco use date assessed 08/09/24 08/09/24 14:33 Patient Tobacco Use Status Never used Tobacco 08/09/24 14:33 Tobacco use type 03/29/24 11:45 e-Cigarette/Vaping Use Never Used 08/09/24 14:33 PHQ-9: PHQ-9 Score PHQ-9: Total score 0 08/09/24 15:08 Depression Screening Interpretation: Negative Thrive Assessment: Date of Thrive Assessment Date Thrive assessed 08/09/24 08/09/24 14:33 Currently or been in a relationship where the following occur: No concerns reported Results AMB Rapid Strep AMB Rapid Strep Negative Last Edit by JHONATAN Faustin on 08/09/24 15:22 Coding Additional Codes PHQ-9 - 21039 - PHQ-9 Billing: Yes ([id number]) Assessment & Plan Assessment & Plan Plan To return as scheduled in October 2024 for his annual physical examination with his PCP Orders: Orders SARS-CoV2/FLU/RSV Today J98.8 - Other specified respiratory disorders AMB Rapid Strep Screen Today Z13.9 - Encounter for screening, unspecified Medications: New [NEBULIZER and all related accessories] As directed 1 ea 0RF shortness of breath or wheezing J45.30 - Mild persistent asthma, uncomplicated
== END 2024-08-09 15:19 | disposition home or self-care (01) ==
PROVIDERS: PCP Physician Assistant; Visit Provider Internal Medicine
DX: Z13.9 Encounter for screening, unspecified (principal)

== ENCOUNTER 2024-08-09 14:28 | Outpatient (REF) | payer OTHER, SELFPAY ==
[2024-08-10 12:08] LABS: Influenza A PCR POSITIVE (Negative); Influenza B PCR NEGATIVE (Negative); Resp Syncy Virus RNA Qual PCR NEGATIVE (Negative); SARS COV2 PCR INHOUSE NEGATIVE (Negative)
== END 2024-08-09 14:29 | disposition home or self-care (01) ==
LOC: HO.LAB 14:28
PROVIDERS: PCP Physician Assistant; Visit Provider Internal Medicine
DX: J98.8 Other specified respiratory disorders (principal); J45.30 Mild persistent asthma, uncomplicated
CPT/HCPCS: 0241U; 36415; 87880; 96127

== ENCOUNTER 2024-10-10 13:32 | Outpatient (AMB) | payer OTHER, SELFPAY ==
[2024-10-10 13:35] VITALS: BP 128/78; PULSE 111; TEMP 36.4; O2SAT 95; BMI 32.5
--- NOTE | 2024-10-10 13:35 | MHC.PC.OV ---
Vital Signs 10/10/24 13:35 Height 5 ft 9 in Weight 220 lb 2 oz BMI 32.5 BP 128/78 Blood Pressure Location Lt brachial Position Sitting Pulse 111 H Pulse Source Pulse Oximeter Temp 97.5 F Temp Source Temporal Artery Scan Pulse Oximetry (%) 95 Oxygen Delivery Method Room Air Intake Visit Reasons: PHYSICAL Allergies No Known Allergies Allergy (Verified 10/10/24 13:42) Medication List - Last Reconciled 10/10/24 by Hilario Lopez PA-C albuterol sulfate 90 mcg/actuation 1 inh inhalation QID PRN fexofenadine-pseudoephedrine 180-240 mg ER (Pearl-D 24 Hour) 1 tab PO QAM 20 days fluticasone propion-salmeterol 250-50 mcg/dose (Wixela Inhub) 1 inh inhalation Q12H 30 days methylphenidate HCl (Ritalin) 10 mg PO TID PRN [NEBULIZER and all related accessories As directed] triamcinolone acetonide 0.1% 1 appl topical BID 30 days Tobacco use date assessed: 08/09/24 Dental Screening Dental Screen Date: 08/09/24 HPI PHYSICAL HPI Details Patient is a 28-year-old male here today for an annual physical. Patient has a past medical history significant for borderline high total cholesterol, asthma. .. ADHD: Has followed up with Psychiatry and was started on methylphenidate 10 mg t.i.d. which he feels has been helping though reports he may need higher dose. .. Asthma: He reports his asthma has been well controlled with current maintenance inhaler and p.r.n. use of his albuterol inhaler. He denies any asthma exacerbations or nighttime awakenings with asthma symptoms. He has not further using Singulair and simply using [id number] allergy medication. .. Class 1 Obesity: He does understand he has gained weight since last office visit, BMI above 30. He admits to dietary indiscretion .. Borderline high cholesterol: Most recent fasting lipid panel showing borderline high cholesterol. He has been working on lifestyle and dietary modifications to control his borderline high cholesterol. Will continue to follow lipid panel . Vaccines: Up-to-date with COVID vaccine, tetanus vaccine, UTD with flu, considering a pneumonia vaccine [facility] Medical History Anxiety about health Environmental allergies Surgical History No pertinent past surgical history Family History Father No problems noted. Mother No problems noted. Social History (Updated 10/10/24 @ 13:45 by Hilario Lopez PA-C) Housing: House Alcohol intake: current Alcohol intake frequency: holidays/special occasions only Alcohol type: hard liquor Patient Tobacco Use Status: Never used Tobacco e-Cigarette/Vaping Use: Never Used Second Hand Smoke Exposure: No Substance Use Type: Marijuana service: No Current occupational status: employed Current occupation: [employer] Current occupational exposures/hazards: No Cognitive needs: No Hearing needs: No Vision needs: No Questionnaire Thrive Questionnaire Date Thrive assessed: 08/09/24 DIPESH-7 AMB Questionnaire DIPESH-7 Date DIPESH - 7 assessed: 08/09/24 Source: Developed by Drs. Jorge Rutledge, Miranda Holland, Bob Clark and colleagues, with an educational ajay from [employer]. ACT Questionnaire In the past 4 weeks, how much of the time did your asthma keep you from getting as much done at work, school or at home?: None of the time During the past 4 weeks, how often have you had shortness of breath?: Not at all During the past 4 weeks, how often did your asthma symptoms wake you up at night or earlier than usual in the morning?: Not at all During the past 4 weeks, how often have you had to use your rescue inhaler or nebulizer medication?: Not at all How would you rate your asthma control during the past 4 weeks?: Completely controlled ACT Interpretation: Negative Score: 25 Review of Systems Const Denies body aches, Denies chills, Denies excessive sweating, Denies fatigue, Denies fever(s) and Denies headache(s) Eyes Denies blurry vision ENT Denies dysphagia, Denies vertigo, Denies dizziness, Denies headache(s), Denies hearing loss and Denies tinnitus Card Denies chest pain, Denies chest pain with activity, Denies syncope, Denies irregular heart rhythm and Denies dyspnea Resp Denies chest congestion, Denies cough, Denies hemoptysis, Denies dyspnea and Denies wheezing GI Denies abdominal pain, Denies melena, Denies hematochezia, Denies coffee ground emesis, Denies dysphagia, Denies diarrhea, Denies nausea and Denies vomiting Denies difficulty urinating, Denies dysuria, Denies urinary frequency, Denies urinary hesitancy and Denies urinary urgency Musc Denies arthralgias, Denies limited range of motion, Denies muscle cramps and Denies muscle weakness Skin/Breast Denies rash and Denies skin ulcer Neuro Denies Abnormal speech present, Denies confusion, Denies vertigo, Denies dizziness, Denies syncope, Denies headache(s), Denies memory loss and Denies seizure-like activity Psych Denies anxiety, Denies confusion, Denies depression, Denies memory loss, Denies panic attacks and Denies paranoia Endo Denies excessive sweating, Denies fatigue, Denies flushing, Denies polydipsia and Denies polyuria Aller/Immun Denies wheezing Physical exam (Primary Care) Vital Signs: Last Vital Signs Temp 97.5 F 10/10/24 13:35 Pulse 111 H 10/10/24 13:35 BP 128/78 10/10/24 13:35 Pulse Ox 95 10/10/24 13:35 Oxygen Delivery Method Room Air 10/10/24 13:35 BMI result Body Mass Index 32.5 BMI Assessment/Plan discussion: High BMI High, discussed plan: lifestyle, weight reduction, dietary and physical activity Tobacco/Smoking Status: Tobacco use Status Tobacco use date assessed 08/09/24 10/10/24 13:35 Patient Tobacco Use Status Never used Tobacco 10/10/24 13:45 Tobacco use type 03/29/24 11:45 e-Cigarette/Vaping Use Never Used 10/10/24 13:45 Thrive Assessment: Date of Thrive Assessment Date Thrive assessed 08/09/24 10/10/24 13:35 Const General: cooperative, comfortable, no acute distress, alert and awake; No confusion Orientation/consciousness: oriented to person, oriented to place, patient oriented x3 and No confusion HENMT Head: Yes normocephalic Ears: external ears normal and TM's normal bilaterally Face and sinus: No sinus tenderness Mouth: Normal oral and palatal mucosa present and tongue normal Teeth and gingiva: dentition normal and gingiva normal Throat: Yes posterior oropharynx normal, Yes tonsils normal and Yes uvula midline Eyes Conjunctivae: conjunctivae normal Sclerae: sclerae normal Pupils: Equal, round and reactive pupils present EOM: EOMs intact bilaterally Direct Ophthalmoscopy: No no photophobia Neck Neck: Yes no lymphadenopathy, No tender and Yes no JVD Thyroid: Thyroid normal Carotids: no bruits Chest Chest palpation & inspection: no tenderness Resp Effort & Inspection: normal respiratory effort, no audible wheezes, not labored and no stridor Auscultation: no crackles, no rales, no rhonchi and no wheezes Cardio Jugular venous distension: no JVD Rate: regular rate, not bradycardic and not tachycardic Rhythm: regular rhythm Bruits: no carotid bruits Peripheral pulses: Peripheral pulses 2+ throughout GI Inspection: Yes normal to inspection, No abdominal wall ecchymosis and No visible herniation Palpation (GI): Soft to palpation, nontender, no guarding, not rigid and No hepatosplenomegaly present Auscultation: normoactive bowel sounds General: Yes no CVA tenderness Back/Spine/Pelvis Back: no CVA tenderness and No back tenderness Cervical Spine: cervical ROM normal Thoracic/Lumbar Spine: thoracic and lumbar spine normal to inspection, straight leg raise negative bilaterally, No thoraco-lumbar ROM limited and No lumbar spinal tenderness Skin Lesions: no lesions Rashes: no rashes Wounds: no wounds Neuro General: oriented to person, oriented to place, patient oriented x3, CN's II-XI intact bilaterally and No confusion Cranial nerves: Yes Equal, round and reactive pupils present and Yes Normal accommodation reflex present Cognition (Neuro): normal cognition Speech: No Abnormal speech present Gait exam (Neuro): Normal gait present Motor exam (neuro): 5/5 motor strength present throughout Extrem Right upper extremity: full ROM; no cyanosis Left upper extremity: full ROM; no cyanosis Right lower extremity: no edema Left lower extremity: no edema Psych Appearance: grossly normal Mental Status: mental status grossly normal Affect: normal affect Attitude: cooperative Thought process: Normal thought process present Coding Level of Care Code Est Pt Prev Care 18-39y(56042) Diagnoses Annual physical exam Z00.00 ADHD (attention deficit hyperactivity disorder), inattentive type F90.0 Borderline high cholesterol E78.9 Class 1 obesity E66.811 Mild persistent asthma without complication J45.30 Asthma complication type: uncomplicated Asthma persistence: persistent Asthma severity: mild Additional Codes Asthma Control Questionnaire - ACT Interpretation: Negative ([id number]) Assessment & Plan Assessment & Plan (1) Annual physical exam: Code(s): Z00.00 - Encounter for general adult medical examination without abnormal findings Category: Medical Plan: As per HPI (2) ADHD (attention deficit hyperactivity disorder), inattentive type: Code(s): F90.0 - Attention-deficit hyperactivity disorder, predominantly inattentive type Category: Medical Plan: Patient followed by Psychiatry has been started on methylphenidate 10 mg t.i.d. which he feels is helpful. He will be following up with Psychiatry (3) Borderline high cholesterol: Code(s): E78.9 - Disorder of lipoprotein metabolism, unspecified Category: Medical Plan: Patient has a past medical history of borderline high cholesterol, will be making lifestyle and dietary modifications to reduce his cholesterol. (4) Class 1 obesity: Code(s): E66.811 - Obesity, class 1 Category: Medical Plan: Patient does understand his BMI is over 30 will work on being more physically active and adapting to better eating habits to reduce his weight (5) Asthma: Code(s): J45.909 - Unspecified asthma, uncomplicated Category: Medical Qualifiers: Asthma complication type: uncomplicated Asthma persistence: persistent Asthma severity: mild Qualified Code(s): J45.30 - Mild persistent asthma, uncomplicated Plan: Patient reports his asthma has been fairly well controlled with p.r.n. use of his albuterol inhaler and daily use of his maintenance inhaler. Orders: Orders Comprehensive [place]. Panel Fast 10/10/24 E78.9 - Disorder of lipoprotein metabolism, unspecified Complete Blood Count no Diff 10/10/24 E78.9 - Disorder of lipoprotein metabolism, unspecified Lipid Panel 10/10/24 E78.9 - Disorder of lipoprotein metabolism, unspecified
== END 2024-10-10 13:56 | disposition home or self-care (01) ==
LOC: HO.HMCH 13:33
PROVIDERS: PCP Physician Assistant; Visit Provider Physician Assistant
DX: Z00.00 Encounter for general adult medical examination without abnormal findings (principal); F90.0 Attention-deficit hyperactivity disorder, predominantly inattentive type; E66.811 Obesity, class 1; Z68.32 Body mass index [BMI] 32.0-32.9, adult; E78.9 Disorder of lipoprotein metabolism, unspecified; J45.30 Mild persistent asthma, uncomplicated

== ENCOUNTER → 2024-10-10 13:32 | Outpatient (BNVA) | payer OTHER, SELFPAY | PROVIDERS: PCP Physician Assistant; Visit Provider Physician Assistant | DX: Z00.00 Encounter for general adult medical examination without abnormal findings (principal); F90.0 Attention-deficit hyperactivity disorder, predominantly inattentive type; E78.9 Disorder of lipoprotein metabolism, unspecified; E66.811 Obesity, class 1; Z68.32 Body mass index [BMI] 32.0-32.9, adult; J45.30 Mild persistent asthma, uncomplicated | CPT/HCPCS: 96160 ==

== ENCOUNTER 2024-10-17 08:48 | Outpatient (REF) | payer OTHER, SELFPAY ==
[2024-10-17 09:27] LABS: Hematocrit 47.6 % (42.0-52.0); Hemoglobin 16.9 g/dl (14.0-18.0); Mean Corpuscular HGB Conc 35.5 g/dl (31.0-36.0); Mean Corpuscular Hemoglobin 29.7 pg (27.0-33.0); Mean Corpuscular Volume 83.7 fL (80.0-98.0); Mean Platelet Volume 9.5 fL (9.4-12.4); Platelet Count 226 X10*3/uL (160-400); Red Blood Count 5.69 X10*6/uL (4.60-5.80); Red Cell Distribution Width 11.9 % (11.0-16.0); White Blood Count 5.9 X10*3/uL (4.8-10.8)
[2024-10-17 10:16] LABS: Albumin Level 4.8 g/dL (3.5-5.0); Alkaline Phosphatase 61 U/L (39-117); Anion Gap 10 (12-20); Aspartate Amino Transferase 28 U/L (5-37); Bilirubin Total 0.6 mg/dL (0.0-1.0); Blood Urea Nitrogen 16 mg/dL (9-16); Carbon Dioxide 27 mmol/L (22-29); Chloride 107 mmol/L (96-108); Cholesterol 203 mg/dL (<200); Estimated Glomerular Filt Rate > 60; Glucose Fasting 85 mg/dL (60-99); HDL Cholesterol 43 mg/dL (>40); LDL Cholesterol Calculated 140 mg/dL (<100); Potassium 4.2 mmol/L (3.3-5.1); Sodium 140 mmol/L (135-145); Total Protein 8.1 g/dL (6.5-8.0); Triglycerides 101 mg/dL (<150)
[2024-10-17 10:33] LABS: Alanine Aminotransferase 39 U/L (0-40)
== END 2024-10-17 08:49 | disposition home or self-care (01) ==
LOC: HO.LAB 08:48
PROVIDERS: PCP Physician Assistant; Visit Provider Physician Assistant
DX: Z13.1 Encounter for screening for diabetes mellitus (principal); E78.9 Disorder of lipoprotein metabolism, unspecified
CPT/HCPCS: 36415; 80053; 80061; 85027

== ENCOUNTER 2025-02-20 10:30 | Outpatient (AMB) | payer OTHER, SELFPAY | END 2025-02-20 10:31 | disposition home or self-care (01) | LOC: HO.HMGAL 10:30 | PROVIDERS: PCP Physician Assistant; Visit Provider Registered Nurse Emergency | DX: J30.89 Other allergic rhinitis (principal) | CPT/HCPCS: 95117; 95165 ==

== ENCOUNTER 2025-03-08 08:52 | Outpatient (AMB) | payer OTHER, SELFPAY | END 2025-03-08 09:11 | disposition home or self-care (01) | LOC: HO.HMGAL 08:52 | PROVIDERS: PCP Physician Assistant; Visit Provider Registered Nurse Emergency | DX: J30.89 Other allergic rhinitis (principal) | CPT/HCPCS: 95117; 95165 ==

== ENCOUNTER 2025-03-14 09:04 | Outpatient (AMB) | payer OTHER, SELFPAY ==
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
== END 2025-03-14 10:12 | disposition home or self-care (01) ==
LOC: HO.HOP 09:04
PROVIDERS: PCP Physician Assistant; Visit Provider Clinical Nurse Specialist Psychiatric/Mental Health
DX: F90.0 Attention-deficit hyperactivity disorder, predominantly inattentive type (principal); F41.9 Anxiety disorder, unspecified
CPT/HCPCS: 99214

== ENCOUNTER 2025-03-15 15:11 | Outpatient (AMB) | payer OTHER, SELFPAY | END 2025-03-15 15:12 | disposition home or self-care (01) | LOC: HO.HMGAL 15:11 | PROVIDERS: PCP Physician Assistant; Supervising Provider Registered Nurse Emergency; Visit Provider Registered Nurse Emergency | DX: J30.89 Other allergic rhinitis (principal) | CPT/HCPCS: 95117; 95165 ==

== ENCOUNTER 2025-03-20 08:44 | Outpatient (AMB) | payer OTHER, SELFPAY | END 2025-03-20 08:47 | disposition home or self-care (01) | LOC: HO.HMGAL 08:44 | PROVIDERS: PCP Physician Assistant; Visit Provider Registered Nurse Emergency | DX: J30.89 Other allergic rhinitis (principal) | CPT/HCPCS: 95117; 95165 ==

== ENCOUNTER 2025-03-27 09:06 | Outpatient (AMB) | payer OTHER, SELFPAY | END 2025-03-27 09:07 | disposition home or self-care (01) | LOC: HO.HMGAL 09:06 | PROVIDERS: PCP Physician Assistant; Visit Provider Registered Nurse Emergency | DX: J30.89 Other allergic rhinitis (principal) | CPT/HCPCS: 95117; 95165 ==

== ENCOUNTER 2025-04-10 09:00 | Outpatient (AMB) | payer OTHER, SELFPAY | END 2025-04-10 09:16 | disposition home or self-care (01) | LOC: HO.HMGAL 09:00 | PROVIDERS: PCP Physician Assistant; Visit Provider Registered Nurse Emergency | DX: J30.89 Other allergic rhinitis (principal) | CPT/HCPCS: 95117; 95165 ==

== ENCOUNTER 2025-04-17 09:53 | Outpatient (AMB) | payer OTHER, SELFPAY ==
--- NOTE | 2025-04-17 10:04 | A.OFFPC_ITS ---
Vital Signs 04/17/25 10:05 Height 5 ft 9 in Weight 214 lb 4 oz BMI 31.6 BP 120/80 Blood Pressure Location Lt brachial Position Sitting Pulse 78 Pulse Source Pulse Oximeter Temp 97.3 F Temp Source Temporal Artery Scan Pulse Oximetry (%) 98 Oxygen Delivery Method Room Air Intake Visit Reasons: f/u ADHD / HLD Intake Note: Patient is here to follow up on ADHD, HLD. 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 Instructions: pt changed to OTC zyrted fluticasone propion-salmeterol 250-50 mcg/dose (Wixela Inhub) 1 inh inhalation Q12H 30 days methylphenidate HCl (Ritalin) 10 mg PO TID PRN [NEBULIZER and all related accessories As directed] valacyclovir (Valtrex) 1,000 mg PO BID 5 days Tobacco use date assessed: 04/17/25 Dental Screening Dental Screen Date: 08/09/24 HPI f/u ADHD / HLD HPI Details Patient is a 29-year-old male here today for follow-up visit. Patient has a past medical history significant for borderline high total cholesterol, asthma. .. ADHD: Has followed up with Psychiatry and was started on methylphenidate 10 mg t.i.d. which he feels has been helping though reports he may need higher dose. .. Asthma: He reports his asthma has been well controlled with current maintenance inhaler and p.r.n. use of his albuterol inhaler. He denies any asthma exacerbations or nighttime awakenings with asthma symptoms. He has not further using Singulair and simply using [id number] allergy medication. .. Class 1 Obesity: Has lost a few lb since last office visit. He does understand he has gained weight since last office visit, BMI above 30. .. Borderline high cholesterol: Most recent fasting lipid panel showing borderline high cholesterol. He has been working on lifestyle and dietary modifications to control his borderline high cholesterol. Will continue to follow lipid panel Laboratory Tests 10/04/21 10/03/22 01/28/23 09:13 14:55 15:06 RBC Cholesterol 195 214 181 LDL Cholesterol, C alc 136 10/12/23 10/12/23 10/17/24 09:02 09:10 08:57 RBC 5.57 Cholesterol 190 203 H LDL Cholesterol, C alc 129 H 140 H [facility] Medical History Anxiety about health Environmental allergies Surgical History No pertinent past surgical history Family History Father No problems noted. Mother No problems noted. Social History Housing: House Alcohol intake: current Alcohol intake frequency: holidays/special occasions only Alcohol type: hard liquor Patient Tobacco Use Status: Never used Tobacco e-Cigarette/Vaping Use: Never Used Second Hand Smoke Exposure: No Substance Use Type: Marijuana service: No Current occupational status: employed Current occupation: [employer] Current occupational exposures/hazards: No Cognitive needs: No Hearing needs: No Vision needs: No Questionnaire PHQ-9 Over the last 2 weeks, how often have you been bothered by any of the following problems? 1. Little interest or pleasure in doing things: not at all 2. Feeling down, depressed, or hopeless: not at all 3. Trouble falling or staying asleep, or sleeping too much: not at all 4. Feeling tired or having little energy: not at all 5. Poor appetite or overeating: not at all 6. Feeling bad about yourself - or that you are a failure or have let yourself or your family down: not at all 7. Trouble concentrating on things, such as reading the newspaper or watching television: not at all 8. Moving or speaking so slowly that other people could have noticed. Or the opposite - being so fidgety or restless that you have been moving around a lot more than usual: not at all 9. Thoughts that you would be better off or of hurting yourself in some way: not at all Total score: 0 Depression Screening Interpretation: Negative Depression Screening Done: Yes 37002 - PHQ-9 Billing: Yes Source: Developed by Drs. Jorge Rutledge, Miranda Holland, Bob Clark and colleagues, with an educational ajay from [employer]. Thrive Questionnaire Date Thrive assessed: 04/11/25 I am a: Patient What is your living situation today?: I have a steady place to live Within the past 12 months, did the food you bought not last and you didn't have the money to get more?: Never true Within the past 12 months, did you worry whether your food would run out before you got money to buy more?: Never true Do you have trouble paying for medicines?: No Do you have trouble getting transportation to medical appointments?: No Do you have trouble paying your heating and electricity bill?: No Do you have trouble taking care of your child, family member or friend?: No Do you have trouble with day-to-day activities such as bathing, preparing meals, shopping, managing finances, etc.?: No Are you currently unemployed and looking for a job?: No Are you interested in more education?: No Please select the resources that you would like help with: None Currently or been in a relationship where the following occur: No concerns reported THRIVE Score: 0 AUDIT C Alcohol Use Questionnaire (AUDIT-C) 1. How often do you have a drink containing alcohol?: Monthly or less 2. How many drinks containing alcohol do you have on a typical day when you are drinking?: 1 or 2 3. How often do you have six or more drinks on one occasion?: Never Total Score: 1 DIPESH-7 AMB Questionnaire DIPESH-7 Date DIPESH - 7 assessed: 04/17/25 Feeling nervous, anxious, or on edge: 0 = Not at all Not being able to stop or control worryin = Several days Worrying too much about different things: 1 = Several days Trouble relaxin = Not at all Being so restless that it is hard to sit still: 0 = Not at all Becoming easily annoyed or irritable: 1 = Several days Feeling afraid as if something awful might happen: 0 = Not at all Total DIPESH-7 score (0-4 normal; 5-9 mild; 10-14 moderate; 15-21 severe): 3 Source: Developed by Drs. Jorge Rutledge, Miranda Holland, Bob Clark and colleagues, with an educational ajay from [employer]. DIPESH-7 Assessment Billing DIPESH-7 Assessment Tool: DIPESH-7 Assessment 18581 ACT Questionnaire In the past 4 weeks, how much of the time did your asthma keep you from getting as much done at work, school or at home?: None of the time During the past 4 weeks, how often have you had shortness of breath?: Not at all During the past 4 weeks, how often did your asthma symptoms wake you up at night or earlier than usual in the morning?: Not at all During the past 4 weeks, how often have you had to use your rescue inhaler or nebulizer medication?: Not at all How would you rate your asthma control during the past 4 weeks?: Completely controlled ACT Interpretation: Negative Score: 25 Review of Systems Const Denies headache(s) Eyes Denies loss of vision ENT Denies vertigo, Denies dizziness, Denies headache(s) and Denies sore throat Card Denies chest pain, Denies leg edema and Denies lightheadedness Resp Denies cough, Denies hemoptysis and Denies wheezing GI Denies abdominal pain, Denies melena, Denies constipation, Denies diarrhea and Denies vomiting Denies dysuria, Denies urinary frequency and Denies urinary urgency Musc Denies arthralgias, Denies joint swelling, Denies numbness and Denies tingling Neuro Denies Abnormal speech present, Denies behavioral changes, Denies vertigo, Denies dizziness, Denies headache(s), Denies loss of vision, Denies memory loss, Denies numbness and Denies tingling Psych Denies anxiety, Denies behavioral changes, Denies depression, Denies memory loss and Denies panic attacks Brian/Lymph Denies easy bleeding and Denies easy bruising Aller/Immun Denies wheezing Physical exam (Primary Care) Vital Signs: Last Vital Signs Temp 97.3 F 04/17/25 10:05 Pulse 78 04/17/25 10:05 BP 120/80 04/17/25 10:05 Pulse Ox 98 04/17/25 10:05 Oxygen Delivery Method Room Air 04/17/25 10:05 BMI result Body Mass Index 31.6 BMI Assessment/Plan discussion: High BMI High, discussed plan: lifestyle, weight reduction, dietary and physical activity Tobacco/Smoking Status: Tobacco use Status Tobacco use date assessed 04/17/25 04/17/25 10:12 Patient Tobacco Use Status Never used Tobacco 04/17/25 10:12 Tobacco use type 03/29/24 11:45 e-Cigarette/Vaping Use Never Used 04/17/25 10:12 PHQ-9: PHQ-9 Score PHQ-9: Total score 0 04/17/25 10:30 Depression Screening Interpretation: Negative Thrive Assessment: Date of Thrive Assessment Date Thrive assessed 04/11/25 04/17/25 10:12 Currently or been in a relationship where the following occur: No concerns reported Const General: healthy appearing, no acute distress, alert and awake Nutritional Appearance: well nourished Orientation/consciousness: oriented to person, oriented to place and oriented to time HENMT Ears: TM's normal bilaterally General nose exam: Normal nasal mucous membranes and turbinates present Eyes Conjunctivae: conjunctivae normal Sclerae: sclerae normal Pupils: Equal, round and reactive pupils present Neck Neck: Yes no lymphadenopathy and Yes no JVD Thyroid: Thyroid normal Carotids: no bruits Resp Effort & Inspection: normal respiratory effort and not tachypneic Auscultation: no crackles, no rales, no rhonchi and no wheezes Cardio Rate: regular rate Rhythm: regular rhythm Heart sounds: no murmurs and normal S1 and S2 GI Palpation (GI): Soft to palpation, nontender, no hepatomegaly and no splenomegaly Auscultation: normal bowel sounds Skin General skin exam: no rashes or lesions noted and dry skin Neuro General: oriented to person, oriented to place and oriented to time Cranial nerves: Yes Equal, round and reactive pupils present Speech: No Abnormal speech present Gait exam (Neuro): Normal gait present Motor exam (neuro): no tremor noted Extrem Right upper extremity: full ROM Left upper extremity: full ROM Right lower extremity: full ROM; no edema Left lower extremity: full ROM; no edema Psych Mental Status: mental status grossly normal Speech and movement: Normal speech and movement present Affect: normal affect Attitude: cooperative Thought process: Normal thought process present Office Procedures Flu Questionnaire Does the patient have a severe egg allergy?: No Does the patient have severe life threatening allergies?: No Does the patient have a fever or illness today?: No Has the patient ever had Guillain-[place] Syndrome?: No Has the patient ever had any past reaction to a flu shot?: No Immunizations Fluarix [id number] (PF) 45 mcg (15 mcg x 3)/0.5 mL IM syringe Performing Provider: Hilario Lopez PA-C [facility] Administered by: JHONATAN Faustin on 04/17/25 10:31 Dose Route Admin Location Dispensed Lot Number Expiration Date NDC Machine Feeder 0.5 mL IM Right Deltoid 0.5 mL [id number] 01/02/26 [id number] [employer] VIS Given Date VIS Provided VIS Publication Date 04/17/25 Single Vaccine 24 Eligibility Eligibility Date Funding Source Not [facility] Eligible 04/17/25 Private Coding Level of Care Code Est Pt Level 4 (56117) Diagnoses ADHD (attention deficit hyperactivity disorder), inattentive type F90.0 Borderline high cholesterol E78.9 Mild persistent asthma without complication J45.30 Asthma complication type: uncomplicated Asthma persistence: persistent Asthma severity: mild Additional Codes Asthma Control Questionnaire - ACT Interpretation: Negative ([id number]) PHQ-9 - 25000 - PHQ-9 Billing: Yes ([id number]) DIPESH-7 Assessment Billing - DIPESH-7 Assessment Tool: DIPESH-7 Assessment 23452 ([id number]) Assessment & Plan Assessment & Plan (1) ADHD (attention deficit hyperactivity disorder), inattentive type: Code(s): F90.0 - Attention-deficit hyperactivity disorder, predominantly inattentive type Category: Medical Plan: Patient followed by Psychiatry has been started on methylphenidate 10 mg t.i.d. which he feels is helpful. He will be following up with Psychiatry He continues to work full-time with [employer] (2) Borderline high cholesterol: Code(s): E78.9 - Disorder of lipoprotein metabolism, unspecified Category: Medical Plan: Patient has a past medical history of borderline high cholesterol, will be making lifestyle and dietary modifications to reduce his cholesterol. (3) Asthma: Code(s): J45.909 - Unspecified asthma, uncomplicated Category: Medical Qualifiers: Asthma complication type: uncomplicated Asthma persistence: persistent Asthma severity: mild Qualified Code(s): J45.30 - Mild persistent asthma, uncomplicated Plan: Patient reports his asthma has been fairly well controlled with p.r.n. use of his albuterol inhaler and daily use of his maintenance inhaler. Orders: Orders Complete Blood Count no Diff Today J45.30 - Mild persistent asthma, uncomplicated Influenza [id number] Immunization Today Z23 - Encounter for immunization Lipid Panel Today E78.9 - Disorder of lipoprotein metabolism, unspecified Comprehensive [place]. Panel Fast Today E78.9 - Disorder of lipoprotein metabolism, unspecified Medications: Refilled methylphenidate HCl (Ritalin) Partial Fill upon patient request. 10 mg PO TID PRN 90 tabs 0RF ADHD
[2025-04-17 10:05] VITALS: BP 120/80; PULSE 78; TEMP 36.3; O2SAT 98; BMI 31.6
== END 2025-04-17 11:09 | disposition home or self-care (01) ==
LOC: HO.HMCH 09:54
PROVIDERS: PCP Physician Assistant; Visit Provider Physician Assistant
DX: F90.0 Attention-deficit hyperactivity disorder, predominantly inattentive type (principal); E78.9 Disorder of lipoprotein metabolism, unspecified; J45.30 Mild persistent asthma, uncomplicated; Z23 Encounter for immunization

== ENCOUNTER → 2025-04-17 09:53 | Outpatient (BNVA) | payer OTHER, SELFPAY | PROVIDERS: PCP Physician Assistant; Visit Provider Physician Assistant | DX: F90.0 Attention-deficit hyperactivity disorder, predominantly inattentive type (principal); Z23 Encounter for immunization; E78.9 Disorder of lipoprotein metabolism, unspecified; J45.30 Mild persistent asthma, uncomplicated; E66.811 Obesity, class 1; Z68.31 Body mass index [BMI] 31.0-31.9, adult; Z13.31 Encounter for screening for depression; Z13.39 Encounter for screening examination for other mental health and behavioral disorders | CPT/HCPCS: 90471; 90656; 96127; 96160 ==

== ENCOUNTER 2025-04-18 10:09 | Outpatient (AMB) | payer OTHER, SELFPAY ==
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
== END 2025-04-18 10:41 | disposition home or self-care (01) ==
LOC: HO.HOP 10:09
PROVIDERS: PCP Physician Assistant; Visit Provider Clinical Nurse Specialist Psychiatric/Mental Health
DX: F90.0 Attention-deficit hyperactivity disorder, predominantly inattentive type (principal); F41.9 Anxiety disorder, unspecified
CPT/HCPCS: 99214

== ENCOUNTER 2025-04-19 09:11 | Outpatient (AMB) | payer OTHER, SELFPAY | END 2025-04-19 09:14 | disposition home or self-care (01) | LOC: HO.HMGAL 09:11 | PROVIDERS: PCP Physician Assistant; Visit Provider Registered Nurse Emergency | DX: J30.89 Other allergic rhinitis (principal) | CPT/HCPCS: 95117; 95165 ==

== ENCOUNTER 2025-04-24 15:17 | Outpatient (AMB) | payer OTHER, SELFPAY | END 2025-04-24 15:17 | disposition home or self-care (01) | LOC: HO.HMGAL 15:17 | PROVIDERS: PCP Physician Assistant; Visit Provider Registered Nurse Emergency | DX: J30.89 Other allergic rhinitis (principal) | CPT/HCPCS: 95117; 95165 ==

== ENCOUNTER 2025-05-01 09:22 | Outpatient (AMB) | payer OTHER, SELFPAY | END 2025-05-01 09:23 | disposition home or self-care (01) | LOC: HO.HMGAL 09:22 | PROVIDERS: PCP Physician Assistant; Visit Provider Registered Nurse Emergency | DX: J30.89 Other allergic rhinitis (principal) | CPT/HCPCS: 95117; 95165 ==

== ENCOUNTER 2025-05-10 13:38 | Outpatient (AMB) | payer OTHER, SELFPAY | END 2025-05-10 13:42 | disposition home or self-care (01) | LOC: HO.HMGAL 13:38 | PROVIDERS: PCP Physician Assistant; Visit Provider Registered Nurse Emergency | DX: J30.89 Other allergic rhinitis (principal) | CPT/HCPCS: 95117; 95165 ==

== ENCOUNTER 2025-05-22 13:26 | Outpatient (AMB) | payer OTHER, SELFPAY | END 2025-05-22 13:26 | disposition home or self-care (01) | LOC: HO.HMGAL 13:26 | PROVIDERS: PCP Physician Assistant; Visit Provider Registered Nurse Emergency | DX: J30.89 Other allergic rhinitis (principal) | CPT/HCPCS: 95117; 95165 ==

== ENCOUNTER 2025-05-29 09:10 | Outpatient (AMB) | payer OTHER, SELFPAY | END 2025-05-29 09:10 | disposition home or self-care (01) | LOC: HO.HMGAL 09:10 | PROVIDERS: PCP Physician Assistant; Visit Provider Registered Nurse Emergency | DX: J30.89 Other allergic rhinitis (principal) | CPT/HCPCS: 95117; 95165 ==

== ENCOUNTER 2025-06-07 09:35 | Outpatient (AMB) | payer OTHER, SELFPAY | END 2025-06-07 09:36 | disposition home or self-care (01) | LOC: HO.HMGAL 09:35 | PROVIDERS: PCP Physician Assistant; Visit Provider Registered Nurse Emergency | DX: J30.89 Other allergic rhinitis (principal) | CPT/HCPCS: 95117; 95165 ==

== ENCOUNTER 2025-06-12 14:45 | Outpatient (AMB) | payer OTHER, SELFPAY | END 2025-06-12 14:45 | disposition home or self-care (01) | LOC: HO.HMGAL 14:45 | PROVIDERS: PCP Physician Assistant; Visit Provider Registered Nurse Emergency | DX: J30.89 Other allergic rhinitis (principal) | CPT/HCPCS: 95117; 95165 ==

== ENCOUNTER 2025-06-20 11:38 | Outpatient (AMB) | payer OTHER, SELFPAY ==
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
== END 2025-06-20 11:39 | disposition home or self-care (01) ==
LOC: HO.HOP 11:38
PROVIDERS: PCP Physician Assistant; Visit Provider Clinical Nurse Specialist Psychiatric/Mental Health
DX: F90.0 Attention-deficit hyperactivity disorder, predominantly inattentive type (principal); F41.9 Anxiety disorder, unspecified
CPT/HCPCS: 99214

== ENCOUNTER → 2025-06-21 09:10 | Outpatient (REF) | payer OTHER, SELFPAY ==
--- NOTE | 2025-06-21 09:13 | ECG_ITS ---
Test Reason : HYPERACTIVITY Blood Pressure : */* mmHG Vent. Rate : 74 BPM Atrial Rate : 74 BPM P-R Int : 146 ms QRS Dur : 92 ms QT Int : 366 ms P-R-T Axes : 7 46 20 degrees QTcB Int : 406 ms Normal sinus rhythm Nonspecific ST and T wave abnormality Abnormal ECG No previous ECGs available Referred By: Germaine Angel Electronically Signed By: Sohail Perez
== END ==
LOC: HO.CARD 09:10
PROVIDERS: PCP Physician Assistant; Visit Provider Clinical Nurse Specialist Psychiatric/Mental Health
DX: F90.0 Attention-deficit hyperactivity disorder, predominantly inattentive type (principal)
CPT/HCPCS: 93005

== ENCOUNTER → 2025-06-21 09:13 | Outpatient (BNV) | payer OTHER, SELFPAY | PROVIDERS: PCP Physician Assistant; Visit Provider Internal Medicine Cardiovascular Disease | DX: R94.31 Abnormal electrocardiogram [ECG] [EKG] (principal); F90.0 Attention-deficit hyperactivity disorder, predominantly inattentive type | CPT/HCPCS: 93010 ==

== ENCOUNTER 2025-06-21 09:23 | Outpatient (AMB) | payer OTHER, SELFPAY | END 2025-06-21 09:23 | disposition home or self-care (01) | LOC: HO.HMGAL 09:23 | PROVIDERS: PCP Physician Assistant; Visit Provider Registered Nurse Emergency | DX: J30.89 Other allergic rhinitis (principal) | CPT/HCPCS: 95117; 95165 ==

== ENCOUNTER 2025-06-26 12:55 | Outpatient (AMB) | payer OTHER, SELFPAY | END 2025-06-26 12:58 | disposition home or self-care (01) | LOC: HO.HMGAL 12:55 | PROVIDERS: PCP Physician Assistant; Visit Provider Registered Nurse Emergency | DX: J30.89 Other allergic rhinitis (principal) | CPT/HCPCS: 95117; 95165 ==